=== PATIENT | female | born 1980 | race Caucasian/White ===

== ENCOUNTER 2016-10-14 17:00 | Emergency (ER) | payer MEDICAID ==
[~2016-10-14] VITALS: Ht 165.1 cm; Wt 141.5 kg
[~2016-10-14 17:00] MED LIST: ALBU8I INH; BLOOKIT5; IBUP400 PO; SERT-129 PO; SERT100 PO; TRINTAB7 PO
[2016-10-14 17:06] VITALS: BP 136/84; PULSE 86; RESP 19; TEMP 98.8; O2SAT 98
[2016-10-14] MEDS ORDERED: NORG10TA PO (17:25)
[2016-10-14] MEDS ORDERED: SERT-129 PO (17:25)
--- NOTE | 2016-10-14 18:07 | PD ---
HPI Chief Complaint: ENT Complaint Time Seen by Provider: 17:30 Travel History International Travel<30 days: No Contact w/Intl Traveler<30days: No Traveled to known affect area: No History of Present Illness HPI 36-year-old female percents emergency department with three-day history of sore throat and headache. She reports frequent episodes of strep pharyngitis. She denies difficulty swallowing, cough, nasal congestion, nausea vomiting or abdominal pain. Patient denies any significant past medical history. PFSH Past Medical History Medical History: Denies Significant Hx Asthma: Yes Anxiety: Yes Depression: Yes Diminished Hearing: No Immunizations Current: No Pneumonia: Yes ?: Not LMP: 10/06/2016 : 2 Para: 2 Miscarriage: 0 : 0 Family History Family Hypercholesterolemia: Yes (FATHER) Social History Alcohol Use: No Tobacco Use: No Substance Use: No Allergies-Medications (Allergen,Severity, Reaction): Coded Allergies: Amoxicillin (Verified Allergy, Severe, Hives, 10/14/16) Penicillin (Verified Allergy, Severe, RASH, 10/14/16) Reported Meds & Prescriptions Reported Meds & Active Scripts Active Reported Trinessa Lo (Norgestimate-Ethinyl Estradiol) 0.18/0.215/0.25 mg-25 Mcg Tab 1 Tab PO DAILY Sertraline (Sertraline HCl) 100 Mg Tab 100 Mg PO DAILY Review of Systems Except as stated in HPI: all other systems reviewed are Neg Physical Exam Narrative 36-year-old female presents emergency Department with 3 day history sore throat. She reports frequent episodes of strep pharyngitis in the past. She reports subjective fevers and mild headache. On exam she has moderate pharyngeal erythema without exudate. Strep screen pending Data Data Last Documented VS Vital Signs Date Time Temp Pulse Resp B/P Pulse Ox O2 Delivery O2 Flow Rate FiO2 10/14/16 17:06 98.8 86 19 136/84 98 Orders Group A Rapid Strep Screen (10/14/16 17:49) Strep Culture (Group A) (10/14/16 17:45) MDM Medical Decision Making Medical Screen Exam Complete: Yes Emergency Medical Condition: Yes Medical Record Reviewed: Yes Differential Diagnosis Strep pharyngitis, viral pharyngitis, URI Narrative Course 36-year-old female presents emergency Department with 3 day history of sore throat and headache. She reports frequent strep pharyngitis. Her exam shows moderate pharyngeal erythema without exudate. Strep screen negative Diagnosis Primary Impression: Viral pharyngitis Referrals: Primary Care Physician Disposition: 01 DISCHARGE HOME Condition: Stable Claudette Kirk October 14, 2016 18:07
[2016-10-15] MEDS ORDERED: NORG10TA PO (07:35)
== END 2016-10-14 18:44 | disposition home or self-care (01) ==
LOC: PHEFT 17:00
DX: J02.9 Acute pharyngitis, unspecified (principal); R51 Headache; R50.9 Fever, unspecified; J45.909 Unspecified asthma, uncomplicated; F41.9 Anxiety disorder, unspecified; F32.9 Major depressive disorder, single episode, unspecified; Z88.0 Allergy status to penicillin; Z79.899 Other long term (current) drug therapy
CPT/HCPCS: 87081; 87880; 99283

== ENCOUNTER 2016-10-23 14:17 | Emergency (ER) | payer MEDICAID ==
[~2016-10-23] VITALS: Ht 162.6 cm; Wt 141.0 kg
[~2016-10-23 14:17] MED LIST changes: -ALBU8I INH; -BLOOKIT5; -IBUP400 PO; +NORG10TA PO; -SERT100 PO; -TRINTAB7 PO
[2016-10-23 14:20] VITALS: BP 143/90; PULSE 87; RESP 16; TEMP 98; O2SAT 98
[2016-10-23 14:33] LABS: BLOOD, URINE LARGE (NEG); GLUCOSE,URINE NEG (NEG); KETONE, URINE NEG (NEG); NITRITE,URINE NEG (NEG)
--- NOTE | 2016-10-23 14:34 | PD ---
HPI Chief Complaint: Complaint Time Seen by Provider: 14:29 Travel History International Travel<30 days: No Contact w/Intl Traveler<30days: No Traveled to known affect area: No History of Present Illness HPI 36-year-old female presents emergency department for evaluation of frequency, urgency, dysuria for one day. She reports similar symptoms with previous UTI in the past. She denies fever, chills, nausea or vomiting, abdominal pain, back pain, vaginal discharge. She reports past medical history depression on Zoloft. Allergies to amoxicillin and penicillin. PFSH Past Medical History Asthma: Yes Anxiety: Yes Depression: Yes Diminished Hearing: No ?: Not : 2 Para: 2 Miscarriage: 0 : 0 Family History Family Hypercholesterolemia: Yes (FATHER) Social History Alcohol Use: No Tobacco Use: No Substance Use: No Allergies-Medications (Allergen,Severity, Reaction): Coded Allergies: Amoxicillin (Verified Allergy, Severe, Hives, 10/23/16) Penicillin (Verified Allergy, Severe, RASH, 10/23/16) Reported Meds & Prescriptions Reported Meds & Active Scripts Active Trinessa Lo (Norgestimate-Ethinyl Estradiol) 0.18/0.215/0.25 mg-25 Mcg Tab 1 Tab PO DAILY Reported Sertraline (Sertraline HCl) 100 Mg Tab 100 Mg PO DAILY Review of Systems Except as stated in HPI: all other systems reviewed are Neg Physical Exam Narrative GENERAL: Well-nourished, well-developed patient. SKIN: Focused skin assessment warm/dry. HEAD: Normocephalic. EYES: No scleral icterus. No injection or drainage. NECK: Supple, trachea midline. No JVD or lymphadenopathy. CARDIOVASCULAR: Regular rate and rhythm without murmurs, gallops, or rubs. RESPIRATORY: Breath sounds equal bilaterally. No accessory muscle use. GASTROINTESTINAL: Abdomen soft, non-tender, nondistended. MUSCULOSKELETAL: No cyanosis, or edema. BACK: Nontender without obvious deformity. No CVA tenderness. Data Data Last Documented VS Vital Signs Date Time Temp Pulse Resp B/P Pulse Ox O2 Delivery O2 Flow Rate FiO2 10/23/16 14:20 98.0 87 16 143/90 98 Orders Urinalysis - C+S If Indicated (10/23/16 14:22) Ed Urine Pregnancytest Poc (10/23/16 14:22) Urine Culture (10/23/16 14:24) Labs Laboratory Tests Test 10/23/16 14:24 Urine Collection Type CLEAN CATCH Urine Color YELLOW Urine Turbidity CLOUDY Urine pH 6.0 Urine Specific [place] 1.018 Urine Protein NEG mg/dL Urine Glucose (UA) NEG mg/dL Urine Ketones NEG mg/dL Urine Occult Blood LARGE Urine Nitrite NEG Urine Bilirubin NEG Urine Leukocyte Esterase MOD Urine RBC 0-3 /hpf Urine WBC 25-49 /hpf Urine WBC Clumps MOD Urine Bacteria MOD /hpf Microscopic Urinalysis Comment CULTURE INDICATED MDM Medical Decision Making Medical Screen Exam Complete: Yes Emergency Medical Condition: Yes Differential Diagnosis Cystitis, pyelonephritis, dysuria, urinary frequency Narrative Course 36-year-old female presents emergency department for evaluation of urinary frequency, urgency, dysuria for one day. She denies fevers, chills, back pain, abdominal pain, nausea or vomiting. She is well-appearing. UA pending UA: Positive for RBCs, leukocytes, bacteria She will be treated with Macrobid for UTI. Return precautions discussed. Diagnosis Primary Impression: UTI (urinary tract infection) Qualified Code: N30.01 - Acute cystitis with hematuria Referrals: Primary Care Physician Additional Instructions: Return to emergency department if he develops fever, chills, nausea/vomiting or back pain. Scripts Phenazopyridine (Pyridium)100 Mg Uxx551 Mg PO Q8H PRN (DYSURIA) #6 TAB Ref 0 Prov:Claudette Kirk 10/23/16 Nitrofurantoin Monohydrate Macrocrystals (Macrobid)100 Mg Sul026 Mg PO BID #10 CAP Ref 0 Prov:Claudette Kirk 10/23/16 Disposition: 01 DISCHARGE HOME Condition: Stable Claudette Kirk Oct 23, 2016 14:34
[2016-10-23 14:35] LABS: METHOD OF COLLECTION CLEAN CATCH; URINE COLOR YELLOW (YELLW/STRAW)
[2016-10-23 14:37] LABS: BACTERIA, URINE MOD /hpf; COMMENT (UR) CULTURE INDICATED; CULTURE IF INDICATED CULTURE INDICATED; RBC, URINE 0-3 /hpf (0-3)
[2016-10-23] MEDS ORDERED: PHEN0.4T PO (14:52)
[2016-10-23] MEDS ORDERED: MACR100C2 PO (14:52)
== END 2016-10-23 14:57 | disposition home or self-care (01) ==
LOC: PHEFT 14:17
DX: N39.0 Urinary tract infection, site not specified (principal); B96.20 Unspecified Escherichia coli [E. coli] as the cause of diseases classified elsewhere
CPT/HCPCS: 81001; 84703; 87077; 87086; 87186; 99283

== ENCOUNTER 2016-12-11 22:58 | Emergency (ER) | payer MEDICAID ==
[~2016-12-11] VITALS: Ht 165.1 cm; Wt 141.0 kg
[~2016-12-11 22:58] MED LIST changes: +MACR100C2 PO; +PHEN0.4T PO
[2016-12-11 23:03] VITALS: BP 149/69; PULSE 92; RESP 18; TEMP 98.5; O2SAT 97
[2016-12-11 23:10] VITALS: BP 142/81; PULSE 92; RESP 18; O2SAT 97
[2016-12-11] MEDS ORDERED: VENTAER INH (23:13)
--- NOTE | 2016-12-11 23:26 | PD ---
HPI Chief Complaint: Respiratory Symptoms Time Seen by Provider: 23:23 Travel History International Travel<30 days: No Contact w/Intl Traveler<30days: No Traveled to known affect area: No History of Present Illness HPI 36 year-old female presents to the emergency department by private transportation for complaint of shortness of breath. Patient has history of asthma and bronchitis. Patient states her rescue inhaler is not providing symptom relief. Patient denies fever chills or productive cough. Patient is a nonsmoker. Patient states she does have seasonal environmental allergies but does not feel that she has had a flare from this. Patient also reports that she is allergic to cats and owns cats and has not had any issues with her family pets. Patient denies other concerns or complaints. No chest pain. No lower extremity pain or swelling. Patient states she has not recently been on antibiotic and has not recently been on steroid therapy. PFSH Past Medical History Narrative Medical Asthma, anxiety depression, no tobacco use; nursing notes reviewed Asthma: Yes Anxiety: Yes Depression: Yes Diminished Hearing: No Respiratory: Yes (ASTHMA) Immunizations Current: Yes Influenza Vaccination: No ?: Not LMP: 12/05/16 : 2 Para: 2 Miscarriage: 0 : 0 Past Surgical History Surgical History: No Previous Surgery Family History Family Hypercholesterolemia: Yes (FATHER) Social History Alcohol Use: No Tobacco Use: No (QUIT 2007) Substance Use: No Allergies-Medications (Allergen,Severity, Reaction): Coded Allergies: Amoxicillin (Verified Allergy, Severe, Hives, 10/23/16) Penicillin (Verified Allergy, Severe, RASH, 10/23/16) Reported Meds & Prescriptions Reported Meds & Active Scripts Active Trinessa Lo (Norgestimate-Ethinyl Estradiol) 0.18/0.215/0.25 mg-25 Mcg Tab 1 Tab PO DAILY Reported Ventolin Hfa 18 GM Inh (Albuterol Sulfate) 90 Mcg/Act Aer 2 Puff INH Q4-6H PRN Sertraline (Sertraline HCl) 100 Mg Tab 100 Mg PO DAILY Review of Systems Except as stated in HPI: all other systems reviewed are Neg General / Constitutional: No: Fever, Chills HENT: No: Congestion Cardiovascular: No: Chest Pain or Discomfort Respiratory: Positive: Shortness of Breath, Wheezing, No: Cough, Pleuritic Pain Gastrointestinal: No: Nausea Genitourinary: No: Flank Pain Musculoskeletal: No: Myalgias, Arthralgias Skin: No Rash Neurologic: No: Weakness Hematologic/Lymphatic: No: Lymph Node Enlargement Physical Exam Narrative GENERAL: Well-developed well-nourished obese female in no acute distress no respiratory distress SKIN: Warm and dry. HEAD: Normocephalic. EYES: No scleral icterus. No injection or drainage. NECK: Supple, trachea midline. No JVD or lymphadenopathy. CARDIOVASCULAR: Regular rate and rhythm without murmurs, gallops, or rubs. RESPIRATORY: Breath sounds equal bilaterally and diminished bilaterally. No accessory muscle use. GASTROINTESTINAL: Abdomen soft, non-tender, nondistended. MUSCULOSKELETAL: No cyanosis, or edema. BACK: Nontender without obvious deformity. No CVA tenderness. Data Data Last Documented VS Vital Signs Date Time Temp Pulse Resp B/P Pulse Ox O2 Delivery O2 Flow Rate FiO2 12/11/16 23:15 18 100 Room Air 12/11/16 23:03 98.5 92 149/69 Orders Albuterol-Ipratropium Neb (Duoneb Neb) (12/11/16 23:30) Prednisone (Deltasone) (12/11/16 23:30) MDM Medical Decision Making Medical Screen Exam Complete: Yes Emergency Medical Condition: Yes Medical Record Reviewed: Yes Differential Diagnosis Exacerbation asthma, bronchitis, viral syndrome, allergic bronchitis, CHF, PE Narrative Course Patient given prednisone 50 mg by mouth along with DuoNeb updraft 1 At 12:37 AM patient is clinically improved lung sounds are clear patient is stable for outpatient management with prescription for Medrol Dosepak. Diagnosis Primary Impression: Asthma Qualified Code: J45.20 - Mild intermittent asthma without complication Referrals: Primary Care Physician Patient Instructions: General Instructions Additional Instructions: Increase fluid hydration Complete course of steroid Use a rescue inhaler as needed Follow-up with primary care provider Take acetaminophen/Tylenol as needed for fever 100.4F or greater Return to the emergency department for pain fever shortness of breath or any concerns Med/Other Pt SpecificInfo: Prescription(s) given Scripts Methylprednisolone Dosepak (Medrol Dosepak)4 Mg Dspk4 Mg PO DIRECTED #1 DSPK Ref 0 Per Pharmacist direction Prov:Nicolette Escobar MD 12/12/16 Disposition: 01 DISCHARGE HOME Condition: Stable Nicolette Escobar MD Dec 11, 2016 23:26
[2016-12-11] MEDS ORDERED: RESP: ALBUTEROL 2.5 MG/IPRATROPIUM 0.5 MG NEB (SCH) NEB ONE (23:30)
[2016-12-11] MEDS ORDERED: predniSONE 50 MG TAB PO ONE (23:30)
[2016-12-12 00:15] VITALS: BP 161/87; PULSE 98; RESP 18; O2SAT 97
[2016-12-12] MEDS ORDERED: MEDR4PAK PO (00:36)
== END 2016-12-12 00:43 | disposition home or self-care (01) ==
LOC: PHED 22:58
DX: J45.20 Mild intermittent asthma, uncomplicated (principal); Z87.891 Personal history of nicotine dependence
CPT/HCPCS: 94664; 99283; J7512

== ENCOUNTER 2017-02-25 08:02 | Emergency (ER) | payer MEDICAID ==
[~2017-02-25] VITALS: Ht 165.1 cm; Wt 142.1 kg
[~2017-02-25 08:02] MED LIST changes: -MACR100C2 PO; +MEDR4PAK PO; -PHEN0.4T PO; +VENTAER INH
[2017-02-25 08:14] VITALS: BP 126/77; PULSE 86; RESP 18; TEMP 99.6; O2SAT 98
[2017-02-25] MEDS ORDERED: CLIN1CAP6 PO (08:44)
--- NOTE | 2017-02-25 08:45 | PD ---
HPI Chief Complaint: Skin Problem Time Seen by Provider: 08:33 Travel History International Travel<30 days: No Contact w/Intl Traveler<30days: No Traveled to known affect area: No History of Present Illness HPI This is a 37-year-old female who presents to the emergency department with pain involving her left vulva, constant, moderate severity going on for 2 days, feeling like she has an abscess there. She has had abscesses in her axilla in the past. She denies any fevers or chills. She's had one sexual partner in the past 6 months. She denies any vaginal discharge. PFSH Past Medical History Asthma: Yes Anxiety: Yes Depression: Yes Diminished Hearing: No Respiratory: Yes (ASTHMA) Immunizations Current: Yes Pneumonia: Yes ?: Not LMP: 01/30/17 : 2 Para: 2 Miscarriage: 0 : 0 Family History Family Hypercholesterolemia: Yes (FATHER) Social History Alcohol Use: No Tobacco Use: No (QUIT 2007) Substance Use: No Allergies-Medications (Allergen,Severity, Reaction): Coded Allergies: amoxicillin (Unverified Allergy, Severe, Hives, 02/25/17) penicillin G (Unverified Allergy, Severe, RASH, 02/25/17) Reported Meds & Prescriptions Reported Meds & Active Scripts Active Trinessa Lo (Norgestimate-Ethinyl Estradiol) 0.18/0.215/0.25 mg-25 Mcg Tab 1 Tab PO DAILY Reported Sertraline (Sertraline HCl) 100 Mg Tab 100 Mg PO DAILY Review of Systems Except as stated in HPI: all other systems reviewed are Neg Physical Exam Narrative GENERAL:Well appearing, no acute distress SKIN: Focused skin assessment warm and dry. HEAD: Atraumatic. Normocephalic. EYES: Pupils equal and round. No injection or drainage. ENT: Moist mucous membranes NECK: Trachea midline. CARDIOVASCULAR: Regular rate and rhythm. No murmur appreciated. RESPIRATORY: Clear to auscultation. Breath sounds equal bilaterally. GASTROINTESTINAL: Abdomen soft, non-tender, nondistended. [employer]: 2 cm area of erythema and induration on the left vulva with a open purulent ulceration less than a centimeter with no active drainage. MUSCULOSKELETAL: No obvious deformities. NEUROLOGICAL: Awake and alert. No obvious cranial nerve deficits. Moving all extremities. PSYCHIATRIC: Appropriate mood and affect; insight and judgment normal. Data Data Last Documented VS Vital Signs Date Time Temp Pulse Resp B/P (MAP) Pulse Ox O2 Delivery O2 Flow Rate FiO2 02/25/17 08:14 99.6 86 18 126/77 (93) 98 MDM Medical Decision Making Medical Screen Exam Complete: Yes Emergency Medical Condition: Yes Differential Diagnosis Vulvar abscess, Bartholin's cyst, HSV, gonorrhea, chlamydia Narrative Course This is a 37-year-old female who presents to the emergency department with swelling and pain of her left vulva. There she has a small early abscess that appears more indurated than fluctuant to me. I discussed with the patient the risks versus benefits of incision and drainage versus conservative therapy. I think she would benefit from 24-48 hours of warm compresses and antibiotic therapy and I anticipate it may resolve on its own. I advised her that if it's not improving in 48 hours she should return to the emergency department at which time we can perform an incision and drainage. She is otherwise nontoxic appearing and has no history of diabetes and I think she is appropriate for outpatient management. Diagnosis Primary Impression: Vulvar abscess Patient Instructions: General Instructions Additional Instructions: Apply a warm washcloth for 15 minutes 4 times a day. Complete your course of antibiotics. Return to the emergency department in 48 hours if your symptoms are worsening or not improved. Med/Other Pt SpecificInfo: Prescription(s) given Scripts Clindamycin (Clindamycin) 300 Mg Cap 300 MG PO TID for Infection, #21 CAP 0 Refills Prov: Chhaya Lynn MD 02/25/17 Disposition: 01 DISCHARGE HOME Condition: Stable Chhaya Lynn MD Feb 25, 2017 08:45
== END 2017-02-25 08:54 | disposition home or self-care (01) ==
LOC: PHED 08:02
DX: N76.4 Abscess of vulva (principal)
CPT/HCPCS: 99283

== ENCOUNTER 2017-06-07 12:45 | Emergency (ER) | payer MEDICAID | END 2017-06-07 15:03 | disposition home or self-care (01) | LOC: PHEFT 12:45 | DX: S56.911A Strain of unspecified muscles, fascia and tendons at forearm level, right arm, initial encounter (principal); F41.8 Other specified anxiety disorders; J45.909 Unspecified asthma, uncomplicated; Z88.0 Allergy status to penicillin; X50.0XXA Overexertion from strenuous movement or load, initial encounter; Y92.009 Unspecified place in unspecified non-institutional (private) residence as the place of occurrence of the external cause | CPT/HCPCS: 99282 ==

== ENCOUNTER 2017-09-22 19:56 | Emergency (ER) | payer MEDICAID | END 2017-09-22 21:08 | disposition home or self-care (01) | LOC: PHED 19:56 | DX: N76.4 Abscess of vulva (principal); J45.909 Unspecified asthma, uncomplicated; F41.9 Anxiety disorder, unspecified; F32.9 Major depressive disorder, single episode, unspecified; Z88.0 Allergy status to penicillin; Z79.899 Other long term (current) drug therapy | CPT/HCPCS: 56405; 99283-25 ==